=== PATIENT | male | born 1950 | race Hispanic/Latino ===

== ENCOUNTER 2019-05-22 16:19 | Emergency (ER) | payer MEDICARE ==
--- NOTE | 2019-05-22 17:38 | ULT ---
BILATERAL TESTICULAR ULTRASOUND WITH GOODEN SCALE WITH SPECTRAL DOPPLER IMAGIN05/22/19 HISTORY: Testicular pain. FINDINGS: The right testis measures 3.4 x 2.3 x 1.9 cm and the left testis measures 3.6 x 2.5 x 1.8 cm. No test icular masses or microlithiasis is see. No hydrocele is noted on either side. The right epididymis measures 1.1 x 0.8 cm and the left epididymis measures 1 x 0.6 cm. Flow is demon strated to both epididymi. There is a 6 mm cyst in the right epididymal head and a 9 mm cyst in the r ight epididymal body. IMPRESSION: 1. No evidence of testicular mass or torsion. 2. Right epididymal cysts. POS: OFF
== END 2019-05-22 18:55 | disposition home or self-care (01) ==
LOC: ERS 16:19
DX: Z71.1 Person with feared health complaint in whom no diagnosis is made (principal); E11.9 Type 2 diabetes mellitus without complications; I10 Essential (primary) hypertension; F41.9 Anxiety disorder, unspecified; F32.9 Major depressive disorder, single episode, unspecified; F20.9 Schizophrenia, unspecified
CPT/HCPCS: 76870; 93976

== ENCOUNTER 2020-09-16 15:22 | Inpatient (IN) | payer MEDICARE ==
[2020-09-16 17:22] VITALS: BMI 36.3
[2020-09-16] MEDS ORDERED: Acetaminophen 325 MG TAB PO PRN (19:39)
[2020-09-16] MEDS ORDERED: Ondansetron PF 4 MG/2 ML Vial IVP PRN (19:39)
[2020-09-16] MEDS ORDERED: Dextrose 5% in Water 1,000 ML IV PRN (19:44)
[2020-09-16] MEDS ORDERED: HumaLOG 300 UNITS/3 ML VIAL SC PRN ×2 (19:44)
[2020-09-16] MEDS ORDERED: Dextrose 50% Abboject 50 ML SYRINGE SLOW IVP PRN (19:44)
[2020-09-16] MEDS ORDERED: Lorazepam 1 MG TAB PO PRN (19:45)
[2020-09-16] MEDS ORDERED: hydrALAZINE 20 MG/ML VIAL SLOW IVP PRN (19:49)
[2020-09-16 20:26] LABS: Anion Gap 15 mmol/L (10-20); BUN (Urea Nitrogen) 16 mg/dL (8.4-25.7); Calc. Creatinine Clearance 102 mL/min (70-130); Calcium 7.9 mg/dL (7.8-10.44); Carbon Dioxide 18 mmol/L (23-31); Chloride 101 mmol/L (98-107); Glucose 108 mg/dL (80-115); Lactic Acid 2.2 mmol/L (0.5-2.2); Potassium 3.8 mmol/L (3.5-5.1); Sodium 130 mmol/L (136-145)
[2020-09-16 20:33] LABS: Troponin I 0.031 ng/mL (< 0.028)
[2020-09-16] MEDS: busPIRone HCl 10 MG TAB PO SCH (20:56)
[2020-09-16] MEDS: Atorvastatin Calcium 20 MG TAB PO SCH (20:56)
[2020-09-16] MEDS: Melatonin 3 MG TAB PO SCH (20:56)
[2020-09-16] MEDS: Latanoprost 0.005% Ophth Soln 2.5 ml Bottle EA EYE SCH (20:57)
[2020-09-16] MEDS: Oxybutynin 5 MG TAB PO SCH (20:57)
[2020-09-16] MEDS: risperiDONE 1 MG TAB PO SCH (20:57)
[2020-09-16 23:04] LABS: Bacteria/HPF None Seen HPF (None Seen); Bilirubin Negative (Negative); Blood, Urine Negative (Negative); Clarity Clear (Clear); Glucose, Urine (Dipstick) Normal (Negative); Ketone, Urine Trace mg/dL (Negative); Leukocyte Negative Leu/uL (Negative); Nitrite Negative (Negative); Protein, Urine (Dipstick) Negative (Neg-Trace); RBC/HPF None Seen HPF (0-3); Specific Gravity, Urine 1.009 (1.002-1.036); Squamous Epithelial None Seen HPF (0-3); Urobilinogen Normal mg/dL (Less than 2); WBC/HPF 0-3 HPF (0-3); pH, Urine 5.5 (5.0-9.0)
[2020-09-16 23:08] LABS: Urine Culture Reflex No No
[2020-09-16 23:26] LABS: Troponin I 0.029 ng/mL (< 0.028)
[2020-09-17] MEDS ORDERED: Cefepime 1 GM in Sodium Chloride 0.9% 100 ML IVPB SCH (02:00)
[2020-09-17 05:14] LABS: #Eosinphils 0.1 thou/uL (0.0-0.7); #Lymphocytes 3.5 thou/uL (1.20-3.40); #Monocytes 1.1 thou/uL (0.11-0.59); #Neutrophils 7.6 thou/uL (1.40-6.50); %Basophils 0.4 % (0.0-1.0); %Eosinophils 0.9 % (0.0-10.0); %Monocytes 9.3 % (0.0-10.0); %Neutrophils 61.4 % (42.0-75.0); Hemoglobin 12.7 g/dL (14.0-18.0); Mean Corpuscular HGB CONC 33.2 g/dL (32.0-36.0); Mean Corpuscular Hemoglobin 31.6 pg (27.0-31.0); Mean Corpuscular Volume 95.1 fL (78.0-98.0); Mean Platelet Volume 8.5 fL (7.4-10.4); Platelet Count 225 thou/uL (130-400); Red Blood Cell (RBC) Count 4.03 mill/uL (4.70-6.10); White Blood Cell (WBC) Count 12.3 thou/uL (4.8-10.8)
[2020-09-17 05:33] LABS: Anion Gap 9 mmol/L (10-20); BUN (Urea Nitrogen) 13 mg/dL (8.4-25.7); Calc. Creatinine Clearance 113 mL/min (70-130); Calcium 8.5 mg/dL (7.8-10.44); Carbon Dioxide 25 mmol/L (23-31); Chloride 105 mmol/L (98-107); Glucose 108 mg/dL (80-115); Sodium 135 mmol/L (136-145)
[2020-09-17] MEDS: busPIRone HCl 10 MG TAB PO SCH ×3 (08:17→20:29)
[2020-09-17] MEDS: Citalopram 20 MG TAB PO SCH (08:18)
[2020-09-17] MEDS: Oxybutynin 5 MG TAB PO SCH ×2 (08:18→20:29)
[2020-09-17] MEDS: risperiDONE 1 MG TAB PO SCH ×2 (08:18→20:28)
[2020-09-17] MEDS ORDERED: VANCOMYCIN 2 GRAM/400 ML BAG 2 GM in Premix Bag 1 BAG IVPB SCH (15:00)
[2020-09-17] MEDS: Atorvastatin Calcium 20 MG TAB PO SCH (20:29)
[2020-09-17] MEDS: Latanoprost 0.005% Ophth Soln 2.5 ml Bottle EA EYE SCH (20:29)
[2020-09-17] MEDS: Melatonin 3 MG TAB PO SCH (20:29)
[2020-09-18 05:01] LABS: #Basophils 0.1 thou/uL (0.0-0.2); #Eosinphils 0.3 thou/uL (0.0-0.7); #Lymphocytes 3.9 thou/uL (1.20-3.40); #Monocytes 1.3 thou/uL (0.11-0.59); #Neutrophils 5.7 thou/uL (1.40-6.50); %Basophils 0.8 % (0.0-1.0); %Eosinophils 2.7 % (0.0-10.0); %Lymphocytes 34.8 % (21.0-51.0); %Monocytes 11.2 % (0.0-10.0); %Neutrophils 50.5 % (42.0-75.0); Hemoglobin 12.5 g/dL (14.0-18.0); Mean Corpuscular HGB CONC 31.9 g/dL (32.0-36.0); Mean Corpuscular Hemoglobin 30.7 pg (27.0-31.0); Mean Corpuscular Volume 96.1 fL (78.0-98.0); Mean Platelet Volume 8.5 fL (7.4-10.4); Platelet Count 208 thou/uL (130-400); RBC Distribution Width 12.3 % (11.5-14.5); Red Blood Cell (RBC) Count 4.08 mill/uL (4.70-6.10); White Blood Cell (WBC) Count 11.3 thou/uL (4.8-10.8)
[2020-09-18 05:19] LABS: ALT (SGPT) 23 U/L (8-55); AST (SGOT) 21 U/L (5-34); Albumin 3.5 g/dL (3.4-4.8); Alkaline Phosphatase 57 U/L (40-110); Anion Gap 9 mmol/L (10-20); BUN (Urea Nitrogen) 13 mg/dL (8.4-25.7); Bilirubin, Total 0.7 mg/dL (0.2-1.2); Calc. Creatinine Clearance 120 mL/min (70-130); Calcium 8.3 mg/dL (7.8-10.44); Carbon Dioxide 25 mmol/L (23-31); Chloride 108 mmol/L (98-107); Globulin 2.8 g/dL (2.4-3.5); Glucose 112 mg/dL (80-115); Potassium 3.9 mmol/L (3.5-5.1); Protein, Total 6.3 g/dL (5.8-8.1); Sodium 138 mmol/L (136-145)
[2020-09-18] MEDS: busPIRone HCl 10 MG TAB PO SCH (08:10)
[2020-09-18] MEDS: risperiDONE 1 MG TAB PO SCH (08:10)
[2020-09-18] MEDS: Citalopram 20 MG TAB PO SCH (08:11)
[2020-09-18] MEDS: Oxybutynin 5 MG TAB PO SCH (08:11)
[2020-09-18 11:07] VITALS: BP 113/76; TEMP 98.6
== END 2020-09-18 13:32 | DRG 309 ==
LOC: 2NO 17:19 → OBSVTOIN 19:39
PROVIDERS: ADMIT Internal Medicine; ATTEND Internal Medicine
DX: I47.1 Supraventricular tachycardia (principal); E87.1 Hypo-osmolality and hyponatremia; I24.8 Other forms of acute ischemic heart disease; E11.9 Type 2 diabetes mellitus without complications; I10 Essential (primary) hypertension; E78.5 Hyperlipidemia, unspecified; E66.9 Obesity, unspecified; F20.9 Schizophrenia, unspecified; Z79.899 Other long term (current) drug therapy; Z98.890 Other specified postprocedural states; Z68.36 Body mass index [BMI] 36.0-36.9, adult
CPT/HCPCS: 36415; 36416; 80048; 80053; 81001; 83605; 83930; 83935; 84300; 85025; 93306; J0692; J3490

== ENCOUNTER 2021-11-05 17:33 | Inpatient (IN) | payer OTHER ==
[2021-11-05 17:45] VITALS: BMI 34.8
[2021-11-05] MEDS ORDERED: Ondansetron ODT 4 MG TAB PO PRN (18:07)
[2021-11-05] MEDS ORDERED: Guaifenesin DM 100-10/5 ML UDCUP PO PRN (18:09)
[2021-11-05] MEDS: Atorvastatin Calcium 20 MG TAB PO SCH (19:33)
[2021-11-05] MEDS: Acetaminophen 500 MG TAB PO PRN (19:33)
[2021-11-05] MEDS: busPIRone HCl 10 MG TAB PO SCH (19:33)
[2021-11-05] MEDS: Divalproex Sodium 250 MG (DR) TAB PO SCH (19:33)
[2021-11-05] MEDS: Oxybutynin 5 MG TAB PO SCH (19:34)
[2021-11-05] MEDS: Melatonin 3 MG TAB PO SCH (19:34)
[2021-11-05] MEDS: Famotidine 20 MG TAB PO SCH (19:34)
[2021-11-05] MEDS: risperiDONE 1 MG TAB PO SCH (19:34)
[2021-11-05] MEDS: Lorazepam 1 MG TAB PO PRN (20:43)
[2021-11-06 04:39] LABS: #Lymphocytes 2.2 thou/uL (1.20-3.40); #Neutrophils 7.5 thou/uL (1.40-6.50); %Basophils 0.1 % (0.0-1.0); %Eosinophils 0.1 % (0.0-10.0); %Lymphocytes 20.3 % (21.0-51.0); %Monocytes 9.6 % (0.0-10.0); %Neutrophils 69.9 % (42.0-75.0); Hemoglobin 13.1 g/dL (14.0-18.0); Mean Corpuscular HGB CONC 31.6 g/dL (32.0-36.0); Mean Corpuscular Hemoglobin 31.7 pg (27.0-31.0); Platelet Count 174 thou/uL (130-400); Red Blood Cell (RBC) Count 4.15 mill/uL (4.70-6.10); White Blood Cell (WBC) Count 10.8 thou/uL (4.8-10.8)
[2021-11-06 04:59] LABS: Anion Gap 15 mmol/L (10-20); BUN (Urea Nitrogen) 18 mg/dL (8.4-25.7); Calc. Creatinine Clearance 107 mL/min (70-130); Calcium 8.6 mg/dL (7.8-10.44); Carbon Dioxide 24 mmol/L (23-31); Chloride 103 mmol/L (98-107); Estimated GFR 82; Glucose 122 mg/dL (80-115); Potassium 4.2 mmol/L (3.5-5.1); Sodium 138 mmol/L (136-145)
[2021-11-06] MEDS: Acetaminophen 500 MG TAB PO PRN (08:20)
[2021-11-06] MEDS: cefTRIAXone\\ROCEPHIN 1 GM in Sodium Chloride 0.9% 100 ML IVPB SCH (08:21)
[2021-11-06] MEDS: busPIRone HCl 10 MG TAB PO SCH ×3 (08:21→20:55)
[2021-11-06] MEDS: Divalproex Sodium 250 MG (DR) TAB PO SCH ×2 (08:21→20:55)
[2021-11-06] MEDS: Citalopram 20 MG TAB PO SCH (08:21)
[2021-11-06] MEDS: Famotidine 20 MG TAB PO SCH ×2 (08:21→20:55)
[2021-11-06] MEDS: risperiDONE 1 MG TAB PO SCH ×2 (08:21→20:55)
[2021-11-06] MEDS: Oxybutynin 5 MG TAB PO SCH ×2 (08:21→20:55)
[2021-11-06] MEDS: Azithromycin 500 MG in Sodium Chloride 0.9% 250 ML 250 ML IVPB SCH (09:31)
[2021-11-06] MEDS: Atorvastatin Calcium 20 MG TAB PO SCH (20:55)
[2021-11-06] MEDS: Melatonin 3 MG TAB PO SCH (20:55)
[2021-11-06] MEDS: Lorazepam 1 MG TAB PO PRN (20:55)
[2021-11-07] MEDS: Oxybutynin 5 MG TAB PO SCH (10:05)
[2021-11-07] MEDS: cefTRIAXone\\ROCEPHIN 1 GM in Sodium Chloride 0.9% 100 ML IVPB SCH (10:05)
[2021-11-07] MEDS: busPIRone HCl 10 MG TAB PO SCH (10:06)
[2021-11-07] MEDS: Citalopram 20 MG TAB PO SCH (10:06)
[2021-11-07] MEDS: Divalproex Sodium 250 MG (DR) TAB PO SCH (10:06)
[2021-11-07] MEDS: Famotidine 20 MG TAB PO SCH (10:06)
[2021-11-07] MEDS: risperiDONE 1 MG TAB PO SCH (10:06)
[2021-11-07] MEDS: Azithromycin 500 MG in Sodium Chloride 0.9% 250 ML 250 ML IVPB SCH (11:50)
[2021-11-07 12:45] VITALS: TEMP 98.1
[2021-11-07 13:32] VITALS: BP 118/79
== END 2021-11-07 15:35 | DRG 551 ==
LOC: 2NO 17:33 → OBSVTOIN 11-07 09:00
PROVIDERS: ADMIT Internal Medicine; ATTEND Hospitalist
DX: S32.018A Other fracture of first lumbar vertebra, initial encounter for closed fracture (principal); J18.9 Pneumonia, unspecified organism; I47.1 Supraventricular tachycardia; F31.60 Bipolar disorder, current episode mixed, unspecified; E11.9 Type 2 diabetes mellitus without complications; I10 Essential (primary) hypertension; G20 Parkinson's disease; E78.5 Hyperlipidemia, unspecified; F41.9 Anxiety disorder, unspecified; F20.9 Schizophrenia, unspecified; W18.30XA Fall on same level, unspecified, initial encounter; Z79.899 Other long term (current) drug therapy; Z98.890 Other specified postprocedural states; Z80.9 Family history of malignant neoplasm, unspecified; Y92.092 Bedroom in other non-institutional residence as the place of occurrence of the external cause
CPT/HCPCS: 36415; 36416; 71045; 80048; 83735; 85025; 96374; 96375; G0378; J0456; J0696; J3490; J7050

== ENCOUNTER 2021-11-14 19:00 | Emergency (ER) | payer OTHER | END 2021-11-14 20:53 | disposition home or self-care (01) | LOC: ERS 19:00 | DX: R42 Dizziness and giddiness (principal); I10 Essential (primary) hypertension; E11.9 Type 2 diabetes mellitus without complications; E78.5 Hyperlipidemia, unspecified; W19.XXXA Unspecified fall, initial encounter | CPT/HCPCS: 99283 ==

== ENCOUNTER 2021-11-27 04:46 | Observation (INO) | payer OTHER ==
[2021-11-27 07:31] VITALS: BMI 32.3
[2021-11-27] MEDS ORDERED: Acetaminophen 325 MG TAB PO PRN (08:05)
[2021-11-27] MEDS ORDERED: Ondansetron ODT 4 MG TAB PO PRN (08:05)
[2021-11-27] MEDS ORDERED: Senokot S 8.6-50 MG TAB PO PRN (08:05)
[2021-11-27] MEDS ORDERED: Ondansetron PF 4 MG/2 ML Vial IVP PRN (08:05)
[2021-11-27] MEDS ORDERED: Nitroglycerin 0.4 MG TAB (25 Tab Bottle) SL PRN (08:10)
[2021-11-27] MEDS ORDERED: Dextrose 50% Abboject 50 ML SYRINGE SLOW IVP PRN (08:27)
[2021-11-27] MEDS ORDERED: Dextrose 5% in Water 1,000 ML IV PRN (08:27)
[2021-11-27] MEDS ORDERED: HumaLOG 300 UNITS/3 ML VIAL SC PRN ×2 (08:27)
[2021-11-27] MEDS ORDERED: ADENOSINE 60 MG/20 ML VIAL ONE (08:52)
[2021-11-27] MEDS ORDERED: Lorazepam 1 MG TAB PO PRN (09:16)
[2021-11-27 09:23] LABS: Hemoglobin A1c 5.2 % (4.0-6.0)
[2021-11-27 09:32] LABS: Anion Gap 15 mmol/L (10-20); BUN (Urea Nitrogen) 13 mg/dL (8.4-25.7); Calc. Creatinine Clearance 111 mL/min (70-130); Calcium 8.5 mg/dL (7.8-10.44); Carbon Dioxide 26 mmol/L (23-31); Cardiac Risk 2.1 (Less than 4.5); Chloride 103 mmol/L (98-107); Cholesterol 99 mg/dl (< 200 Desired); Estimated GFR 93; Glucose 69 mg/dL (80-115); HDL Cholesterol 47 mg/dL (>60 Neg Risk); LDL Cholesterol, Calculated 36 mg/dL; Magnesium 2.1 mg/dL (1.6-2.6); Potassium 3.7 mmol/L (3.5-5.1); Sodium 140 mmol/L (136-145); Triglycerides 78 mg/dL (Less than 150)
[2021-11-27 09:36] LABS: Troponin I Less than 0.010 ng/mL (< 0.028)
[2021-11-27] MEDS ORDERED: Furosemide 20 MG/2 ML VIAL SLOW IVP SCH (11:15)
[2021-11-27 14:02] LABS: Troponin I Less than 0.010 ng/mL (< 0.028)
[2021-11-27] MEDS: Nitroglycerin 2% Ointment 1 INCH/1 GM Packet TOP SCH ×3 (14:02→20:36)
[2021-11-27] MEDS: busPIRone HCl 10 MG TAB PO SCH ×2 (14:08→20:36)
[2021-11-27 14:14] LABS: SARS-CoV-2 NAA Rapid Test Not Detected (NotDetected)
[2021-11-27 16:41] LABS: Troponin I Less than 0.010 ng/mL (< 0.028)
[2021-11-27 19:14] LABS: Bacteria/HPF None Seen HPF (None Seen); Bilirubin Negative (Negative); Blood, Urine Negative (Negative); Clarity Clear (Clear); Glucose, Urine (Dipstick) Normal (Negative); Ketone, Urine Trace mg/dL (Negative); Leukocyte Negative Leu/uL (Negative); Nitrite Negative (Negative); Protein, Urine (Dipstick) Negative (Neg-Trace); RBC/HPF 0-3 HPF (0-3); Specific Gravity, Urine 1.012 (1.002-1.036); Squamous Epithelial None Seen HPF (0-3); Urobilinogen Normal mg/dL (Less than 2); WBC/HPF 0-3 HPF (0-3)
[2021-11-27] MEDS: Oxybutynin 5 MG TAB PO SCH (20:36)
[2021-11-27] MEDS: Divalproex Sodium 250 MG (DR) TAB PO SCH (20:36)
[2021-11-27] MEDS ORDERED: Atorvastatin Calcium 20 MG TAB PO SCH (21:00)
[2021-11-27] MEDS ORDERED: Melatonin 3 MG TAB PO SCH (21:00)
[2021-11-27] MEDS ORDERED: risperiDONE 1 MG TAB PO SCH (21:00)
[2021-11-28 04:54] LABS: #Lymphocytes 3.2 thou/uL (1.20-3.40); #Monocytes 1.1 thou/uL (0.11-0.59); #Neutrophils 4.1 thou/uL (1.40-6.50); %Basophils 0.2 % (0.0-1.0); %Eosinophils 0.4 % (0.0-10.0); %Lymphocytes 38.1 % (21.0-51.0); %Monocytes 12.6 % (0.0-10.0); %Neutrophils 48.7 % (42.0-75.0); Hemoglobin 12.1 g/dL (14.0-18.0); Mean Corpuscular HGB CONC 32.3 g/dL (32.0-36.0); Mean Corpuscular Hemoglobin 32.8 pg (27.0-31.0); Mean Platelet Volume 8.8 fL (7.4-10.4); Platelet Count 134 thou/uL (130-400); Red Blood Cell (RBC) Count 3.68 mill/uL (4.70-6.10); White Blood Cell (WBC) Count 8.4 thou/uL (4.8-10.8)
[2021-11-28 05:15] LABS: Anion Gap 16 mmol/L (10-20); BUN (Urea Nitrogen) 14 mg/dL (8.4-25.7); Calc. Creatinine Clearance 110 mL/min (70-130); Calcium 8.2 mg/dL (7.8-10.44); Carbon Dioxide 25 mmol/L (23-31); Chloride 102 mmol/L (98-107); Estimated GFR 93; Glucose 127 mg/dL (80-115); Potassium 3.5 mmol/L (3.5-5.1); Sodium 139 mmol/L (136-145)
[2021-11-28] MEDS ORDERED: risperiDONE 1 MG TAB PO SCH (09:00)
[2021-11-28] MEDS ORDERED: Citalopram 20 MG TAB PO SCH (09:00)
[2021-11-28] MEDS ORDERED: Aspirin Chewable 81 MG TAB PO SCH (09:00)
[2021-11-28] MEDS: Divalproex Sodium 250 MG (DR) TAB PO SCH (09:31)
[2021-11-28] MEDS: Oxybutynin 5 MG TAB PO SCH (09:32)
[2021-11-28] MEDS: busPIRone HCl 10 MG TAB PO SCH ×2 (09:32→14:54)
[2021-11-28] MEDS: Nitroglycerin 2% Ointment 1 INCH/1 GM Packet TOP SCH (09:33)
[2021-11-28 13:30] LABS: Troponin I Less than 0.010 ng/mL (< 0.028)
[2021-11-28 19:48] VITALS: BP 112/68; TEMP 98.5
== END 2021-11-28 19:35 ==
LOC: 2NO 06:15
PROVIDERS: ADMIT Internal Medicine; ATTEND Internal Medicine
DX: R07.89 Other chest pain (principal); F45.8 Other somatoform disorders; R00.1 Bradycardia, unspecified; E87.6 Hypokalemia; J81.1 Chronic pulmonary edema; I11.9 Hypertensive heart disease without heart failure; E11.9 Type 2 diabetes mellitus without complications; E78.5 Hyperlipidemia, unspecified; I47.1 Supraventricular tachycardia; F41.9 Anxiety disorder, unspecified; F20.9 Schizophrenia, unspecified; F31.9 Bipolar disorder, unspecified; N40.0 Benign prostatic hyperplasia without lower urinary tract symptoms; D53.9 Nutritional anemia, unspecified; I07.1 Rheumatic tricuspid insufficiency; R33.9 Retention of urine, unspecified; Z79.899 Other long term (current) drug therapy; Z88.8 Allergy status to other drugs, medicaments and biological substances; Z20.822 Contact with and (suspected) exposure to COVID-19
CPT/HCPCS: 0240U; 51701; 78452; 80048 ×2; 80061; 81001; 82962 ×2; 83036; 83735; 83880; 84484 ×3; 85025; 93005; 93017; 93306; 94760; 96374; 97116; A9500; G0378 ×2; 36415; 36416; 51798; 93010; J0153; J1940